=== PATIENT | male | born 1935 | race Caucasian/White ===

== ENCOUNTER → 2016-12-10 | Outpatient (CLI) | payer OTHER | END | disposition home or self-care (01) | LOC: EDSEX → PCVCCLINIC 16:09 | PROVIDERS: ATTEND Internal Medicine | DX: E78.5 Hyperlipidemia, unspecified (principal); R01.1 Cardiac murmur, unspecified; Z85.46 Personal history of malignant neoplasm of prostate | CPT/HCPCS: G0463 ==

== ENCOUNTER → 2016-12-29 | Outpatient (CLI) | payer OTHER ==
--- NOTE | 2016-12-29 11:39 | PCVCIMAG ---
APPROVED REPORT Study performed: 12/29/2016 08:04:20 EXAM: Comprehensive 2D, Doppler, and color-flow Echocardiogram Patient Location: Echo lab Status: routine BSA: 2.03 HR: 50 bpmBP: 128/70 mmHg Rhythm: NSR Other Information Study Quality: Adequate Indications Murmur, Hyperlipidemia. 2D Dimensions LVEF(%): 64.51 (>50%) IVSd: 8.43 (7-11mm)LVOT Diam: 19.33 (18-24mm) LVDd: 51.21 mm PWd: 5.84 (7-11mm)Ascending Ao: 39.28 (22-36mm) LVDs: 33.07 (25-40mm) Left Atrium: 26.81 (27-40mm) Aortic Root: 34.58 mm LV Single Plane 4CH: 67.61 % LV Single Plane 2CH: 59.33 %Bauman's LVEF: 63.47 % Biplane EF: 63.6 % Volumes Left Atrial Volume (Systole) Single Plane 4CH: 31.55 mLSingle Plane 2CH: 63.51 mL LA ESV Index: 23.00 mL/m2 Aortic Valve AoV Peak Krish.: 1.18 m/s AO Peak Gr.: 5.54 mmHgLVOT Max P.30 mmHg LVOT Max V: 1.04 m/s LEANNA Vmax: 2.58 cm2 Mitral Valve E/A Ratio: 1.2 MV Decel. Time: 192.97 ms MV E Max Krish.: 0.87 m/s MV A Krish.: 0.70 m/s IVRT: 89.97 ms TDI E/Lateral E': 9.67E/Medial E': 9.67 Medial E' Krish.: 0.09 m/s Lateral E' Krsih.: 0.09 m/s Pulmonary Vein P Vein S: 0.64 m/sP Vein A: 0.33 m/s P Vein D: 0.55 m/sP Vein A Dur.: 86.5 msec P Vein S/D Ratio: 1.16 Tricuspid Valve TR Peak Krish.: 2.29 m/s TR Peak Gr.: 20.94 mmHg Left Ventricle The left ventricle is normal size. There is normal LV segmental wall motion. There is normal left ventricular wall thickness. Left ventricular systolic function is normal. The left ventricular ejection fraction is within the normal range. LVEF is 65%. The left ventricular diastolic function is normal. Right Ventricle The right ventricle is normal size. The right ventricular systolic function is normal. Atria The left atrium size is normal. The right atrium size is normal. Aortic Valve The aortic valve is normal in structure. No aortic regurgitation is present. There is no aortic valvular stenosis. Mitral Valve Mitral valve leaflets are mildly thickened. 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 Moderate mitral regurgitation. No evidence of mitral valve stenosis. Tricuspid Valve The tricuspid valve is normal in structure. Trace to mild tricuspid regurgitation. Pulmonic Valve The pulmonary valve is normal in structure. There is no pulmonic valvular regurgitation. Great Vessels The aortic root is normal in size. IVC is normal in size and collapses with >50% inspiration Pericardium There is no pericardial effusion. <Conclusion> The left ventricle is normal size. LVEF is 65%. The aortic valve is normal in structure. Mitral valve leaflets are mildly thickened. 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 Moderate mitral regurgitation. The tricuspid valve is normal in structure. Trace to mild tricuspid regurgitation. The pulmonary valve is normal in structure.
== END | disposition home or self-care (01) ==
LOC: PCVCIMAG 08:10
PROVIDERS: ATTEND Internal Medicine
DX: I08.1 Rheumatic disorders of both mitral and tricuspid valves (principal); E78.5 Hyperlipidemia, unspecified; Z85.46 Personal history of malignant neoplasm of prostate
CPT/HCPCS: 93306